=== PATIENT | female | born 1980 | race Two or more races ===

== ENCOUNTER → 2022-02-08 | Outpatient (CLI) | payer BC ==
[2014-05-06 09:00] VITALS: BP 110/71
[~2022-02-08] MED LIST: IBUP-1060 PO
--- NOTE | 2022-02-08 11:35 | KCIC ---
EXAM: Lumbar spine MRI without contrast. HISTORY: Radiculopathy. TECHNIQUE: Multiplanar, multisequence magnetic resonance imaging of the lumbar spine was performed wi thout contrast. COMPARISON: None. FINDINGS: There is mild lumbar scoliosis. There is no significant listhesis. There is degenerative en dplate remodeling with disc space narrowing, osteophytosis and Schmorl's node formation at L5-S1. The conus terminates at L2. There is no acute fracture. There is no suspicious osseous lesion. At L1-L2, L2-L3 and L3-L4, there is no stenosis. At L4-L5, there is minimal endplate remodeling. There is minimal right facet arthropathy. There is mi ld left foraminal stenosis. At L5-S1, there is a broad-based left paracentral to lateral recess disc protrusion and slight inferi or extrusion. There is also a right lateral recess to extra foraminal disc protrusion and slight supe rior extrusion with osteophyte complex and there is a left foraminal to lateral disc protrusion and o steophyte complex. These are superimposed on a disc bulge and endplate remodeling. There is severe ri ght and moderate left foraminal stenosis with effacement of the exiting right L5 nerve root and abutm ent the exiting left L5 nerve root. There is narrowing of the left lateral recess and deviation of th e traversing left S1 nerve root. There is mild central canal stenosis. IMPRESSION: 1. L5-S1: Degenerative changes resulting in severe right foraminal stenosis with effacement of the ex iting right L5 nerve root and mild left foraminal stenosis with abutment the exiting left L5 nerve ro ot. There is also narrowing of the left lateral recess with deviation of the traversing left S1 nerve root and mild central canal stenosis at this level. 2. L4-L5: Degenerative change contributing to mild left foraminal stenosis. Electronically signed by: Nicole Logan MD (02/08/2022 11:33 AM) [facility]
== END ==
LOC: KCIC MRI 10:14
PROVIDERS: ATTEND Physician Assistant Medical
DX: M47.817 Spondylosis without myelopathy or radiculopathy, lumbosacral region (principal); M48.07 Spinal stenosis, lumbosacral region; M25.78 Osteophyte, vertebrae; M51.27 Other intervertebral disc displacement, lumbosacral region; M48.8X6 Other specified spondylopathies, lumbar region; M51.47 Schmorl's nodes, lumbosacral region; M41.86 Other forms of scoliosis, lumbar region
CPT/HCPCS: 72148

== ENCOUNTER → 2022-02-15 | Outpatient (CLI) | payer BC ==
[2014-05-06 09:00] VITALS: BP 110/71
[~2022-02-15] MED LIST changes: +CYCL10TA19 PO; +DEXAMETHASONE PRES.FREE 10 MG/ML VIAL. ONE; +IOHEXOL 180 MG/ML 10 ML VIAL. ONE; +LISD50CA3 PO
--- NOTE | 2022-02-15 12:55 | PDOC1 ---
INITIAL PAIN CONSULT DATE OF SERVICE: DOS: DATE: 02/15/22 TIME: 12:45 CHIEF COMPLAINT: Chief Complaint: Low back and bilateral lower extremity pain HISTORY OF PRESENT ILLNESS: 41-year-old female presents with history of pain in the low back and bilateral lower extremities for many years since about 2002 but recently worse over the past year or so especially over the past several months patient reports no rece nt injury or accident that she is aware of getting worse with time pain across the low back rating to bilateral lower extremities posterior gluteus posterior thighs posterior calves to the ankles and feet occasion patient reports is recently worse constant is sharp and stabbing in the back as well as shooting and stabbing burning aching and cramping in the legs patient reports right side essentially equal to the left awakens her from sleep at least 3-10 times at night depending on how she is laying is not comfortable in any position patient reports it does not affect her bowel bladder control as far as any incontinence but has some increased urgency with the pain as she does not reported Effexor ability to walk she not use any assistive devices however but she is favoring her lower extremities and more on the right than the left. Patient reports she is previously had physical therapy chiropractic treatment which is ongoing exercise which she is still doing and epidural injections in the past as well as facet injections as well as radiofrequency ablation in the past with good good results but only limited results. Patient reports she had a percutaneous discectomy performed at an outside pain clinic but is unsure of the full procedure and was not to a neurosurgeon or open procedure and sounds like it may be a minimally invasive lumbar decompression although she is unsure. Patient did have an MRI scan which we discussed with her today dated February 08, 2022 showing L5-S1 broad-based left paracentral to lateral recess disc retrusion slight inferior extrusion with right lateral recess to extraforaminal disc protrusion and slight superior extrusion with osteophyte complex with left foraminal and lateral disc protrusion osteophyte complex severe right and moderate left foraminal stenosis with effacement of the exiting right L5 nerve root and abutment of the exiting L5 nerve root narrowing of the left lateral recess and deviation of the traversing left S1 nerve root as well. Also mild central canal stenosis. Patient rates her disability rating from 0-10 10 being worst is a 10 at all categories family possibly recreation social activity, occupation, self-care and life support activities. Patient reports no loss of motor function but significant fatigability of the bilateral lower extremities, no bowel or bladder incontinence. PAST MEDICAL HISTORY: PMH: Cigarette smoking quit 1 year ago, childbirth PREVIOUS SURGERIES: Past Surgical Hx: Hysterectomy, left knee meniscectomy CURRENT MEDICATIONS: Current Meds: Active Scripts Medications Dose Route/Sig Max Daily Dose Days Date Category Vyvanse (Lisdexamfetamine Dimesylate) 50 Mg Capsule 1 Cap PO [id number] MDD 1 Capsule(s) 5 02/15/22 Reported Cyclobenzaprine Hcl 10 Mg Tablet 1 Tab PO QHS 02/15/22 Reported Ibuprofen 800 Mg Tablet 800 Mg PO Q6H PRN 04/26/14 Reported ALLERGIES; Allergies: Coded Allergies: oxycodone (Unverified Allergy, Intermediate, Itching, 05/05/14) FAMILY HISTORY: Family Hx: No major medical problems or conditions that she is aware of. SOCIAL HISTORY: Social Hx: Patient is under alcohol quit smoking a year ago does not use any illegal illicit or recreational drugs is single has 3 children living at home lives locally in [facility] and works from home. REVIEW OF SYSTEMS: ROS: Positive for those items mentioned in history of present illness, all systems are reviewed, otherwise negative ,and are complete full and well-documented on patient's chart. PHYSICAL EXAM: VS: Blood pressure is 121/81 pulse 68 respirations 16 temperature 98.3 F height is 5 feet 7 inches weight is 264 pounds. PE: PHYSICAL EXAMINATION: GENERAL: The patient is awake, alert, oriented, appropriate, very pleasant in demeanor HEENT: Shows normocephalic, atraumatic. Extraocular movements are intact and symmetrical. Oral cavity: Mucous membranes moist and pink. Dentition is intact. NECK: Shows anterior throat supple without palpable lymphadenopathy noted. Swallow reflex symmetrical. CHEST: Shows normal on inspection. Breath sounds are clear bilaterally, no rales rhonchi or wheezes auscultated. HEART: Shows S1, S2 clear. No murmurs auscultated. ABDOMEN: Soft, nontender, nondistended. No palpable organomegaly is noted. BACK: Shows spine grossly in the midline. Normal-appearing for cervical lordotic curvature. There is slightly increased thoracic kyphosis, some minor flattening of the lumbar lordotic curvature. Lumbar paraspinous muscles show symmetrical on inspection, on palpation shows some moderate tenderness diffusely throughout the upper, middle and lower distribution of the paraspinous muscles bilaterally and also into the lower thoracic paraspinous musculature, firm and tender, but without specific trigger points, without radiation of pain. The patient has good rotational motion of the lumbar spine, both laterally as well as extension and flexion without significant difficulty. No tenderness over the spinous processes, sacrum or sacroiliac regions. EXTREMITIES: Lower extremities show deep tendon reflexes 2+ in the patellar and tendo calcaneus tendons. Motor exam is 4 on a scale of 5 with right dorsiflexion, extension, quadriceps and hamstring flexion and 4/5 on the left. Peripheral pulses are 1+ posterior tibial. No peripheral edema is noted bilaterally. Lower extremities are warm and dry to touch, equal in color and appearance. Straight leg raise noted to be positive bilaterally +45 degrees decreased with knee flexion. Gaenslen's and Antonio's maneuvers are negative bilaterally. The patient is able to stand, stand on her toes without significant difficulty or loss of balance walks with a slight favoring gait favoring the right lower extremity but without any assistive devices to ambulate such as canes or walkers. SKIN: Shows warm and dry, good turgor. No edema. No sores, rashes or bruising throughout. IMPRESSION: Impression: 41-year-old female with long history low back bilateral lower extremity pain worse over the past few months and radicular fashion. MRI scan lumbar spine as noted Plan: Options were discussed with patient occluding conservative managements physical therapies and medical techniques. Patient would like to pursue interventional techniques. We discussed a lumbar epidural steroid injection using description as well as anatomical models to describe the procedure. Risks were discussed including but not limited to: Bleeding, infection, possibility of epidural hematoma and subsequent neurological compromise, dural puncture, headaches, spinal cord and/or nerve damage, side effects of steroid medication, and poor results regarding pain control. Patient understands and wished to proceed. Patient will return to clinic in approximately 2 weeks for follow-up, was counseled as to return appointment, activity level, and side effect to be aware of. Procedure is lumbar epidural steroid injection under local anesthetic using sterile prep and drape at the L5-S1 level using C-arm fluoroscopic guidance in both AP and lateral views medications injected is 20 mg dexamethasone +10mL preservative-free normal saline and 2 mL contrast- condition at discharge is stable patient tolerated procedure well had no complications. MENDEZ ABREU MD Feb 15, 2022 12:55
--- NOTE | 2022-02-15 12:56 | PDOC4 ---
Procedure Note: ICD 10 Code: ICD 10 Code: M54.17 M51.87 M4 8.07 Procedure Note: Patient was consented for lumbar epidural steroid injection with fluoroscopic guidance. Risks were discussed including but not limited to: Bleeding, infection, possibility of epidural hematoma and subsequent neurological compromise, dural puncture, headaches, spinal cord and/or nerve damage, side effects of steroid medication, and poor results regarding pain control. Patient understands and wished to proceed. Procedure is lumbar epidural steroid injection under local anesthetic using gunnar rile prep and drape at the L5-S1 level using C-arm fluoroscopic guidance in both AP and lateral views medications injected is 20 mg dexamethasone +10mL preservative-free normal saline and 2 mL contrast- condition at discharge is stable patient tolerated procedure well had no complications. MENDEZ ABREU MD Feb 15, 2022 12:56
== END | disposition home or self-care (01) ==
LOC: PNCL 10:09
PROVIDERS: ATTEND Anesthesiology
DX: M51.17 Intervertebral disc disorders with radiculopathy, lumbosacral region (principal); M48.07 Spinal stenosis, lumbosacral region; Z79.899 Other long term (current) drug therapy; Z98.890 Other specified postprocedural states; Z87.891 Personal history of nicotine dependence; Z88.8 Allergy status to other drugs, medicaments and biological substances
CPT/HCPCS: 62323; J1100; Q9965

== ENCOUNTER → 2022-02-28 | Outpatient (CLI) | payer BC ==
[2014-05-06 09:00] VITALS: BP 110/71
[~2022-02-28] MED LIST changes: -DEXAMETHASONE PRES.FREE 10 MG/ML VIAL. ONE; -IOHEXOL 180 MG/ML 10 ML VIAL. ONE
--- NOTE | 2022-02-28 10:18 | PDOC ---
Progress Note - Pain Clinic Date of Service: DOS: DATE: 02/28/22 TIME: 10:14 Diagnosis: Dx: Lumbar radiculopathy with lumbar degenerative disc disease and lumbar spinal stenosis with lumbar postlaminectomy syndrome History or Present Illness: HPI: 41-year-old female returns for follow-up status post lumbar epidural steroid injection x1. Patient reports about 50% improvement initially but only for few days and the pain returned in the low back and bilateral lower extremities more on the left than the right but present bilaterally posterior gluteus posterior lateral thighs posterior calves patient reports again worse with the left side with walking standing changing positions better with sitting or resting and elevating her legs. Patient reports pain is 8 on scale 10 is worse over the past week 7 on average 7 its least and is a [address] aching and sharp in the back shooting and cramping can be severe and constant with extended standing or walking and traveling in the lower extremities. Patient reports no bowel or bladder incontinence no loss of motor function but significant fatigability left lower extremity. Patient continues to do stretching and strengthening exercises at home daily and is working from home to better allow her to accommodate position changes and elevation of her legs while seated. Physical Exam: VS: Blood pressure is 140/84 pulse 83 respirations 18 temperature 98.8 F height is 5 foot 7 inches weight is 206 pounds. PE: PHYSICAL EXAMINATION: GENERAL: The patient is awake, alert, oriented, appropriate, very pleasant in demeanor HEENT: Shows normocephalic, atraumatic. Extraocular movements are intact and symmetrical. Oral cavity: Mucous membranes moist and pink. Dentition is intact. NECK: Shows anterior throat supple without palpable lymphadenopathy noted. Swallow reflex symmetrical. CHEST: Shows normal on inspection. Breath sounds are clear bilaterally. HEART: Shows S1, S2 clear. No murmurs auscultated. ABDOMEN: Soft, nontender, nondistended. No palpable organomegaly is noted. BACK: Shows spine grossly in the midline. Normal-appearing cervical lordotic c urvature. There is slightly increased thoracic kyphosis, some mild flattening of the lumbar lordotic curvature. Lumbar paraspinous muscles show symmetrical on inspection, on palpation shows some moderate tenderness diffusely throughout the upper, middle and lower distribution of the paraspinous muscles without specific trigger points, without radiation of pain. The patient has good rotational motion of the lumbar spine, both laterally as well as extension and flexion without significant difficulty. EXTREMITIES: Lower extremities show deep tendon reflexes 2+ in the patellar and tendo calcaneus tendons. Motor exam is 4 on a scale of 5 with right dorsiflexion, extension, quadriceps and hamstring flexion and 4/5 on the left. Peripheral pulses are 1 to posterior tibial. No peripheral edema is noted bilaterally. Lower extremities are warm and dry. SKIN: Shows warm and dry, good turgor. No edema. No sores, rashes or bruising throughout. Procedure: Procedure: Options discussed with patient. Patient's old chart was reviewed as her current medication regimen updated current review of systems updated today as well. We will call in Nupercaine of Medrol dose pack for patient, patient was given instructions as well as side effects beware of with the medication. Patient will follow up in approximately 2 weeks. Patient is counseled as to activity level as well as side effects beware of an follow-up appointment. Medication Injected: Med Injected: None Condition at Discharge: Condition at Discharge: Condition at discharge is stable. MENDEZ ABREU MD Feb 28, 2022 10:18
== END | disposition home or self-care (01) ==
LOC: PNCL 09:26
PROVIDERS: ATTEND Anesthesiology
DX: M51.16 Intervertebral disc disorders with radiculopathy, lumbar region (principal); M48.061 Spinal stenosis, lumbar region without neurogenic claudication; M96.1 Postlaminectomy syndrome, not elsewhere classified; Z79.899 Other long term (current) drug therapy; Z98.890 Other specified postprocedural states; Z72.89 Other problems related to lifestyle; Z87.891 Personal history of nicotine dependence; Z88.8 Allergy status to other drugs, medicaments and biological substances
CPT/HCPCS: 99212; G0463

== ENCOUNTER → 2022-03-18 | Outpatient (CLI) | payer BC ==
[2014-05-06 09:00] VITALS: BP 110/71
[~2022-03-18] MED LIST changes: +DEXAMETHASONE PRES.FREE 10 MG/ML VIAL. ONE; +IOHEXOL 180 MG/ML 10 ML VIAL. ONE
--- NOTE | 2022-03-18 09:44 | PDOC ---
Progress Note - Pain Clinic Date of Service: DOS: DATE: 03/18/22 TIME: 09:42 Diagnosis: Dx: Lumbar radiculopathy with lumbar degenerative disease and lumbar postlaminectomy syndrome History or Present Illness: HPI: 41-year-old female returns for follow-up status post lumbar epidural steroid injection x1. Patient reports she did 50% improvement but only for several days pain returning in the low back and the bilateral lower extremities left greater than right patient reports is worse with walking standing change positions p atient reports she can feel the pain with everything she does she is been working remotely from home when she is able to rest and lay down intermittently but she is unable to at work even so the pain is still fairly persistent patient reports is a 9 on scale 10 is worse over the past week 8 on average 7 at its least is an 8 today patient has aching sharp in the back tingling and burning cramping and shooting in the legs can be constant and severe with activity standing walking patient reports it wakes her from sleep about once to twice a night does not affect her bowel bladder control however patient reports loss of motor function but significant fatigability of both lower extremities again more on the left. Physical Exam: VS: Blood pressure is 142/91 pulse 90 respirations 18 temperature 97.6 was Fahrenheit weight is 206 pounds. PE: PHYSICAL EXAMINATION: GENERAL: The patient is awake, alert, oriented, appropriate, very pleasant in demeanor HEENT: Shows normocephalic, atraumatic. Extraocular movements are intact and symmetrical. Oral cavity: Mucous membranes moist and pink. Dentition is intact. NECK: Shows anterior throat supple without palpable lymphadenopathy noted. Swallow reflex symmetrical. CHEST: Shows normal on inspection. Breath sounds are clear bilaterally, no rales or rhonchi auscultated. HEART: Shows S1, S2 clear. No murmurs auscultated. ABDOMEN: Soft, nontender, nondistended. No palpable organomegaly is noted. BACK: Shows spine grossly in the midline. Normal-appearing cervical lordotic curvature. There is slightly increased thoracic kyphosis, some flattening of the lumbar lordotic curvature with well-healed surgical scarring noted. Lumbar paraspinous muscles show symmetrical on inspection, on palpation shows some moderate tenderness diffusely throughout the upper, middle and lower distribution of the paraspinous muscles, but without specific trigger points, without radiation of pain. The patient has good rotational motion of the lumbar spine, both laterally as well as extension and flexion without significant difficulty. EXTREMITIES: Lower extremities show deep tendon reflexes 2+ in the patellar and tendo calcaneus tendons. Motor exam is 4 on a scale of 5 with right dorsiflexion, extension, quadriceps and hamstring flexion and 4/5 on the left. Peripheral pulses are 1 posterior tibial. No peripheral edema is noted bilaterally. Lower extremities are warm and dry. SKIN: Shows warm and dry, good turgor. No edema. No sores, rashes or bruising throughout. Procedure: Procedure: Options discussed with the patient. Patient's chart was use her current medication regimen updated current review of systems updated today as well. We will proceed with lumbar epidural steroid injection today with fluoroscopic guidance. Risks were discussed including but not limited to: Bleeding, infecti on, possibility of epidural hematoma and subsequent neurological compromise, dural puncture, headaches, spinal cord and/or nerve damage, side effects of steroid medication, and poor results regarding pain control. Patient understands and wished to proceed. Patient return to clinic in approximate 2 weeks for follow-up, was counseled as to return appointment, active level, and side effect to be aware of. Medication Injected: Med Injected: Procedure is lumbar epidural steroid injection under local anesthetic using sterile prep and drape at the L 5 S1 level using C-arm fluoroscopic guidance in both AP and lateral views medications injected is 20 mg dexamethasone +10mL preservative-free normal saline and 2 mL contrast- condition at discharge is stable patient tolerated procedure well had no complications. Condition at Discharge: Condition at Discharge: Condition at discharge is stable, patient Curt the procedure well and had no complications. MENDEZ ABREU MD March 18, 2022 09:44
--- NOTE | 2022-03-18 09:45 | PDOC4 ---
Procedure Note: ICD 10 Code: ICD 10 Code: M54.17 M51.87 M48.07 M96.1 Procedure Note: Patient was consented for lumbar epidural steroid injection with fluoroscopic guidance. Risks were discussed including but not limited to: Bleeding, infection, possibility of epidural hematoma and subsequent neurological compromise, dural puncture, headaches, spinal cord and/or nerve damage, side effects of steroid medication, and poor results regarding pain control. Patient understands and wished to proceed. Procedure is lumbar epidural steroid injection under local anesthetic using sterile prep and drape at the L5-S1 level using C-arm fluoroscopic guidance in both AP and lateral views medications injected is 20 mg dexamethasone +10mL preservative-free normal saline and 2 mL contrast- condition at discharge is stable patient tolerated procedure well had no complications. MENDEZ ABREU MD March 18, 2022 09:45
== END | disposition home or self-care (01) ==
LOC: PNCL 08:43
PROVIDERS: ATTEND Anesthesiology
DX: M51.16 Intervertebral disc disorders with radiculopathy, lumbar region (principal); M96.1 Postlaminectomy syndrome, not elsewhere classified; M48.07 Spinal stenosis, lumbosacral region; Z87.891 Personal history of nicotine dependence; Z79.899 Other long term (current) drug therapy; Z98.890 Other specified postprocedural states; Z72.89 Other problems related to lifestyle; Z88.8 Allergy status to other drugs, medicaments and biological substances
CPT/HCPCS: 62323; J1100; Q9965